=== PATIENT | female | born 1980 | race African-American/Black ===

== ENCOUNTER 2016-07-30 16:17 | Emergency (ER) | payer MEDICAID ==
[~2016-07-30] VITALS: Ht 170.2 cm; Wt 141.0 kg
[2016-07-30] MEDS ORDERED: LABETALOL HCL 100MG TABLET PO ONE (17:30)
[2016-07-30 17:43] LABS: BASOPHILS % 0.6 % (0.0-2.0); EOSINOPHILS % 1.3 % (0.0-5.0); HEMATOCRIT. 29.3 % (36.0-48.0); HEMOGLOBIN. 9.3 g/dL (12.0-16.0); LYMPHOCYTES % 16.6 % (20.0-50.0); MEAN CORPUSCULAR HEMOGLOBIN 23.9 pg (28.0-32.0); MEAN CORPUSCULAR VOLUME 75.2 fL (81.0-99.0); MEAN PLATELET VOLUME 7.8 fl (7.4-10.4); MONOCYTES % 9.3 % (2.0-8.0); NEUTROPHILS % 72.2 % (40.0-76.0); PLATELET 260 x1000/uL (130-400); RED CELL DISTRIBUTION WIDTH 18.3 % (11.6-14.6)
[2016-07-30 17:48] LABS: CHLORIDE 97 mEq/L (98-107)
[2016-07-30 17:56] LABS: CARBON DIOXIDE 30 mEq/L (21-32)
[2016-07-30 18:13] LABS: B-HCG QUANTITATIVE 78100 mIU/mL (<3)
[2016-07-30 20:28] LABS: CLARITY URINE CLOUDY (CLEAR); COLOR URINE DARK YELLOW (YELLOW); GLUCOSE URINE NEGATIVE (NEGATIVE); KETONES URINE TRACE (NEGATIVE); LEUKOCYTE ESTERASE URINE 2+ (NEGATIVE); NITRITE URINE NEGATIVE (NEGATIVE); OCCULT BLOOD URINE 3+ (NEGATIVE); PH URINE 7.5 (4.5-8.0); PROTEIN URINE TRACE (NEGATIVE); SPECIFIC GRAVITY URINE 1.019 (1.005-1.030)
[2016-07-30 20:54] VITALS: BP 150/91
== END 2016-07-30 20:55 | disposition home or self-care (01) ==
LOC: ER 18:22
DX: O36.4XX0 Maternal care for intrauterine death, not applicable or unspecified (principal); O14.92 Unspecified pre-eclampsia, second trimester; O23.12 Infections of bladder in pregnancy, second trimester; O16.2 Unspecified maternal hypertension, second trimester; Z3A.16 16 weeks gestation of pregnancy; I10 Essential (primary) hypertension; N30.00 Acute cystitis without hematuria
CPT/HCPCS: 36415; 76801; 80048; 80076; 81001; 84702; 85025; 86850; 86900; 86901; 99285; Z7610

== ENCOUNTER 2021-03-02 16:47 | Emergency (ER) | payer MEDICAID, OTHER ==
[~2021-03-02] VITALS: Ht 170.2 cm; Wt 137.0 kg
[~2021-03-02 16:47] MED LIST: LABE100T5 PO; LISI40TA13 PO
[2021-03-02 19:01] LABS: BASOPHILS % 0.4 % (0.0-2.0); EOSINOPHILS % 0.7 % (0.0-5.0); HEMATOCRIT. 40.1 % (36.0-48.0); HEMOGLOBIN. 11.3 g/dL (12.0-16.0); LYMPHOCYTES % 15.4 % (20.0-50.0); MEAN CORPUSCULAR HEMOGLOBIN 21.1 pg (28.0-32.0); MEAN CORPUSCULAR VOLUME 74.9 fL (81.0-99.0); MEAN PLATELET VOLUME 9.4 fl (7.4-10.4); MONOCYTES % 9.1 % (2.0-8.0); NEUTROPHILS % 74.4 % (40.0-76.0); PLATELET 280 x1000/uL (130-400); RED BLOOD CELL COUNT 5.35 mill/uL (4.2-5.4); RED CELL DISTRIBUTION WIDTH 22.3 % (11.6-14.6)
[2021-03-02 19:09] LABS: CHLORIDE 97 mEq/L (98-107)
[2021-03-02] MEDS ORDERED: ASPIRIN 81MG TABLET PO ONE (19:30)
[2021-03-02] MEDS ORDERED: FUROSEMIDE 40MG/4ML VIAL IV ONE (19:30)
[2021-03-02 19:42] LABS: PLATELET ESTIMATE NORMAL
[2021-03-02 23:02] VITALS: BP 120/52
== END 2021-03-02 23:02 | disposition short-term general hospital (02) ==
LOC: ER 16:47 → CANBEDREQ 03-03 16:11
DX: I11.0 Hypertensive heart disease with heart failure (principal); I50.9 Heart failure, unspecified; R06.03 Acute respiratory distress; Z20.822 Contact with and (suspected) exposure to COVID-19; G47.30 Sleep apnea, unspecified; J44.9 Chronic obstructive pulmonary disease, unspecified; Z99.81 Dependence on supplemental oxygen
CPT/HCPCS: 36415; 71045; 80053; 83690; 83880; 84484; 85025; 87426; 93005; 96374; 99291; J1940